=== PATIENT | male | born 1980 | race Caucasian/White ===

== ENCOUNTER 2017-03-09 14:06 | Emergency (ER) | payer MEDICAID ==
[~2017-03-09] VITALS: Ht 170.2 cm; Wt 112.0 kg
[~2017-03-09 14:06] MED LIST: IOHEXOL-300 100 ML BOTTLE ONE; SODIUM CHLORIDE 0.9% 10ML VIAL ONE
[2017-03-09] MEDS ORDERED: SODIUM CHLORIDE 0.9% 1,000 ML IV ONE (14:54)
[2017-03-09] MEDS ORDERED: ONDANSETRON HCL 4MG/2ML VIAL IV STA (14:54)
[2017-03-09] MEDS ORDERED: MORPHINE SULFATE 4 MG/ML CPJ (NOT FOR IM USE) IV STA (14:54)
[2017-03-09] MEDS ORDERED: TETANUS, DIPHTHERIA, PERTUSSIS VAC/PF 0.5ML (>7YR OLD) IM ONE (15:00)
[2017-03-09 15:12] LABS: CLARITY URINE CLEAR (CLEAR); COLOR URINE YELLOW (YELLOW); GLUCOSE URINE NEGATIVE (NEGATIVE); KETONES URINE NEGATIVE (NEGATIVE); LEUKOCYTE ESTERASE URINE NEGATIVE (NEGATIVE); NITRITE URINE NEGATIVE (NEGATIVE); OCCULT BLOOD URINE NEGATIVE (NEGATIVE); PH URINE 5.5 (4.5-8.0); PROTEIN URINE NEGATIVE (NEGATIVE); SPECIFIC GRAVITY URINE 1.026 (1.005-1.030); UROBILINOGEN URINE 0.2 E.U./dL (0.2-1.0)
[2017-03-09 15:21] LABS: BASOPHILS % 1.2 % (0.0-2.0); EOSINOPHILS % 4.6 % (0.0-5.0); HEMATOCRIT. 43.7 % (42.0-52.0); HEMOGLOBIN. 14.7 g/dL (14.0-18.0); LYMPHOCYTES % 17.8 % (20.0-50.0); MEAN CORPUSCULAR HEMOGLOBIN 29.8 pg (28.0-32.0); MEAN CORPUSCULAR VOLUME 88.5 fL (80.0-94.0); MONOCYTES % 8.6 % (2.0-8.0); NEUTROPHILS % 67.8 % (40.0-76.0); PLATELET 227 x1000/uL (130-400); RED BLOOD CELL COUNT 4.93 mill/uL (4.7-6.1); RED CELL DISTRIBUTION WIDTH 14.2 % (11.6-14.6)
[2017-03-09 15:26] LABS: CHLORIDE 106 mEq/L (98-107)
[2017-03-09 15:27] LABS: PROTHROMBIN TIME 10.5 sec
[2017-03-09 15:35] LABS: CARBON DIOXIDE 26 mEq/L (21-32)
[2017-03-09 20:09] VITALS: BP 155/90
== END 2017-03-09 20:09 | disposition home or self-care (01) ==
LOC: ER 15:01
DX: S52.592A Other fractures of lower end of left radius, initial encounter for closed fracture (principal); S52.692A Other fracture of lower end of left ulna, initial encounter for closed fracture; F17.200 Nicotine dependence, unspecified, uncomplicated; F12.10 Cannabis abuse, uncomplicated; V43.52XA Car driver injured in collision with other type car in traffic accident, initial encounter; Y93.89 Activity, other specified; Y99.8 Other external cause status; Y92.9 Unspecified place or not applicable
CPT/HCPCS: 25605; 36415; 70450; 71260; 72125; 73030; 74177; 80053; 81003; 85025; 85610; 96360; 96361; 99285; A4216; J2405; J7030; Q9967; 90715; J2270

== ENCOUNTER 2025-07-07 23:55 | Inpatient (IN) | payer MEDICAID ==
[~2025-07-07] VITALS: Ht 170.2 cm; Wt 98.9 kg
[2025-07-07 23:56] VITALS: O2SAT 98
[2025-07-08 00:46] LABS: HEMATOCRIT. 45.5 % (42.0-52.0); HEMOGLOBIN. 15.0 g/dL (14.0-18.0); MEAN PLATELET VOLUME 10.4 fl (7.4-10.4); PLATELET 273 x1000/uL (130-400); RED BLOOD CELL COUNT 5.19 mill/uL (4.7-6.1); RED CELL DISTRIBUTION WIDTH 14.8 % (11.6-14.6)
[2025-07-08 01:01] LABS: CREATININE 1.5 mg/dL (0.6-1.3)
[2025-07-08 01:02] LABS: TROPONIN I HIGH SENSITIVITY 35 ng/L (3.0-53); UREA NITROGEN BLOOD 26 mg/dL (9-23)
[2025-07-08 01:03] LABS: ASPARTATE AMINOTRANSFERASE 14 IU/L (<34)
[2025-07-08 01:04] LABS: BILIRUBIN DIRECT 0.2 mg/dL (<=3.0); BILIRUBIN TOTAL 0.7 mg/dL (0.1-1.0); EOSINOPHILS % MANUAL 3.0 % (0.0-5.0); LYMPHOCYTES % MANUAL 19.0 % (20.0-50.0); MONOCYTES % MANUAL 11.0 % (2.0-8.0); NEUTROPHILS % MANUAL 67.0 % (45.0-75.0); PROTEIN TOTAL 6.7 g/dL (6.0-8.3)
[2025-07-08 01:05] LABS: PLATELET ESTIMATE NORMAL
[2025-07-08] MEDS: FUROSEMIDE 40MG/4ML VIAL IV NR (02:46)
[2025-07-08] MEDS: FUROSEMIDE 40MG/4ML VIAL IV ONE (02:48)
[2025-07-08 04:03] LABS: TROPONIN I HIGH SENSITIVITY 35 ng/L (3.0-53)
[2025-07-08] MEDS ORDERED: ONDANSETRON HCL 4MG/2ML INJ IV PRN (05:00)
[2025-07-08] MEDS ORDERED: IPRATROPIUM/ALBUTEROL 0.5-3(2.5)MG/3ML NEB HHN PRN (05:00)
[2025-07-08] MEDS ORDERED: GUAIFENESIN 200MG/10ML SUGAR FREE UDC PO PRN (05:00)
[2025-07-08] MEDS ORDERED: ACETAMINOPHEN 325MG TABLET PO PRN ×2 (05:00)
[2025-07-08] MEDS ORDERED: DEXTROSE 50% WATER 50ML SYRINGE IV PRN (05:15)
[2025-07-08 05:41] LABS: BASOPHILS % 0.2 % (0.0-2.0); EOSINOPHILS % 5.1 % (0.0-5.0); HEMATOCRIT. 46.0 % (42.0-52.0); HEMOGLOBIN. 15.2 g/dL (14.0-18.0); LYMPHOCYTES % 22.3 % (20.0-50.0); MEAN PLATELET VOLUME 10.4 fl (7.4-10.4); MONOCYTES % 6.4 % (2.0-8.0); NEUTROPHILS % 66.0 % (40.0-76.0); PLATELET 282 x1000/uL (130-400); RED BLOOD CELL COUNT 5.22 mill/uL (4.7-6.1); RED CELL DISTRIBUTION WIDTH 15.3 % (11.6-14.6)
[2025-07-08 05:51] LABS: INR 1.1
[2025-07-08 06:01] LABS: CREATINE KINASE MB FRACTION < 0.5 ng/mL (0.5-3.6); CREATININE 1.6 mg/dL (0.6-1.3); TRIGLYCERIDE 185 mg/dL (0-150); TROPONIN I HIGH SENSITIVITY 36 ng/L (3.0-53); UREA NITROGEN BLOOD 26 mg/dL (9-23)
[2025-07-08 06:02] LABS: LDL CHOLESTEROL 167 mg/dL (5-100)
[2025-07-08 06:03] LABS: PHOSPHORUS 3.9 mg/dL (2.5-4.9)
[2025-07-08 06:06] LABS: T4 FREE 1.67 ng/dL (0.89-1.76)
[2025-07-08 06:39] LABS: *AMPHETAMINES SCREEN URINE NEGATIVE (NEGATIVE); *BARBITURATES SCREEN URINE NEGATIVE (NEGATIVE); *BENZODIAZEPINES SCREEN URINE NEGATIVE (NEGATIVE); *COCAINE SCREEN URINE NEGATIVE (NEGATIVE); CANNABINOID URINE SCREEN NEGATIVE (NEGATIVE); ECSTASY MDMA SCREEN URINE NEGATIVE (NEGATIVE); METHADONE URINE SCREEN NEGATIVE (NEGATIVE); OPIATES URINE SCREEN NEGATIVE (NEGATIVE); PHENCYCLIDINE URINE SCREEN NEGATIVE (NEGATIVE)
[2025-07-08] MEDS: BLOOD SUGAR DIAGNOSTIC STRIP TEST SCH (07:10)
[2025-07-08 07:30] VITALS: BP 111/82; PULSE 98; RESP 18; TEMP 36.8; O2SAT 97
[2025-07-08 08:00] VITALS: BP 110/75; PULSE 91; RESP 18; TEMP 36.4; O2SAT 100
[2025-07-08] MEDS: MAGNESIUM 2 G PREMIX 50 ML IV NR (09:32)
[2025-07-08] MEDS: FUROSEMIDE 40MG/4ML VIAL IVP SCH (09:33)
[2025-07-08] MEDS: ENOXAPARIN 30MG/0.3ML SYR SUBCUT SCH (09:33)
[2025-07-08] MEDS: INSULIN LISPRO 100 UNITS/ML SUBCUT SCH (09:34)
[2025-07-08 09:57] VITALS: BP 110/75; PULSE 91; RESP 18; TEMP 36.5292
[2025-07-08 12:00] VITALS: BP 117/80; PULSE 91; RESP 18; TEMP 36.4; O2SAT 98
[2025-07-08] MEDS ORDERED: EMPA25TA MT (12:13)
[2025-07-08] MEDS ORDERED: SACU1TAB PO (12:13)
[2025-07-08] MEDS ORDERED: FURO-151 MT (12:13)
[2025-07-08 15:45] LABS: CLARITY URINE CLEAR (CLEAR); COLOR URINE STRAW (YELLOW)
[2025-07-08 15:50] LABS: *AMPHETAMINES SCREEN URINE NEGATIVE (NEGATIVE); *BENZODIAZEPINES SCREEN URINE NEGATIVE (NEGATIVE)
[2025-07-08 15:51] LABS: *BARBITURATES SCREEN URINE NEGATIVE (NEGATIVE); *COCAINE SCREEN URINE NEGATIVE (NEGATIVE); CANNABINOID URINE SCREEN NEGATIVE (NEGATIVE); ECSTASY MDMA SCREEN URINE NEGATIVE (NEGATIVE); METHADONE URINE SCREEN NEGATIVE (NEGATIVE); OPIATES URINE SCREEN NEGATIVE (NEGATIVE); PHENCYCLIDINE URINE SCREEN NEGATIVE (NEGATIVE)
[2025-07-08 15:58] LABS: GLUCOSE URINE NEGATIVE (NEGATIVE); KETONES URINE NEGATIVE (NEGATIVE); LEUKOCYTE ESTERASE URINE NEGATIVE (NEGATIVE); NITRITE URINE NEGATIVE (NEGATIVE); OCCULT BLOOD URINE NEGATIVE (NEGATIVE); PH URINE 6.0 (4.5-8.0); PROTEIN URINE NEGATIVE (NEGATIVE); SPECIFIC GRAVITY URINE 1.010 (1.005-1.030); UROBILINOGEN URINE 0.2 E.U./dL (0.2-1.0)
[2025-07-08 16:00] VITALS: BP 120/91; PULSE 104; RESP 18; TEMP 36.3; O2SAT 98
[2025-07-08 16:59] LABS: TROPONIN I HIGH SENSITIVITY 34 ng/L (3.0-53)
[2025-07-08 17:00] LABS: CREATINE KINASE MB FRACTION 0.8 ng/mL (0.5-3.6)
[2025-07-08 20:00] VITALS: BP 112/80; PULSE 70; RESP 16; TEMP 36.3; O2SAT 98
[2025-07-08] MEDS: ATORVASTATIN CALCIUM 40MG TABLET PO SCH (20:45)
[2025-07-08] MEDS: FAMOTIDINE 20MG TABLET PO SCH (20:45)
[2025-07-09] VITALS: BP 112/83; PULSE 92; RESP 18; TEMP 36.5; O2SAT 95
[2025-07-09 04:00] VITALS: BP 102/70; PULSE 90; RESP 16; TEMP 36.4; O2SAT 96
[2025-07-09 08:00] VITALS: BP 90/65; PULSE 111; RESP 18; TEMP 36.6; O2SAT 100
[2025-07-09] MEDS: SPIRONOLACTONE 25MG TABLET PO SCH (08:33)
[2025-07-09 10:40] LABS: BASOPHILS % 2.1 % (0.0-2.0); EOSINOPHILS % 4.4 % (0.0-5.0); HEMATOCRIT. 50.3 % (42.0-52.0); HEMOGLOBIN. 16.4 g/dL (14.0-18.0); LYMPHOCYTES % 20.5 % (20.0-50.0); MEAN PLATELET VOLUME 11.1 fl (7.4-10.4); MONOCYTES % 7.8 % (2.0-8.0); NEUTROPHILS % 65.2 % (40.0-76.0); PLATELET 265 x1000/uL (130-400); RED BLOOD CELL COUNT 5.71 mill/uL (4.7-6.1); RED CELL DISTRIBUTION WIDTH 14.7 % (11.6-14.6)
[2025-07-09 11:04] LABS: CREATININE 1.7 mg/dL (0.6-1.3)
[2025-07-09 11:06] LABS: UREA NITROGEN BLOOD 32 mg/dL (9-23)
[2025-07-09 11:08] LABS: PHOSPHORUS 4.9 mg/dL (2.5-4.9)
[2025-07-09 12:00] VITALS: BP 123/82; PULSE 89; RESP 18; TEMP 36.4; O2SAT 98
[2025-07-09] MEDS: POTASSIUM CHLORIDE 20MEQ TABLET SR PO NR (15:53)
[2025-07-09 16:00] VITALS: BP 116/91; PULSE 102; RESP 17; TEMP 36.3; O2SAT 98
[2025-07-09 17:40] VITALS: BP 116/91; PULSE 102; RESP 17; TEMP 97.4
== END 2025-07-09 18:00 | disposition home or self-care (01) | DRG 194 ==
LOC: ER 23:55 → 8WST 07-08 04:37 → EDBEDREQTM 07-08 04:55 → EDBEDREQ 07-08 04:55 → ENRESERV 07-08 05:29
PROVIDERS: ADMIT Internal Medicine; ATTEND Internal Medicine
DX: I13.0 Hypertensive heart and chronic kidney disease with heart failure and stage 1 through stage 4 chronic kidney disease, or unspecified chronic kidney disease (principal); N17.9 Acute kidney failure, unspecified; E11.22 Type 2 diabetes mellitus with diabetic chronic kidney disease; I50.23 Acute on chronic systolic (congestive) heart failure; E78.5 Hyperlipidemia, unspecified; E83.42 Hypomagnesemia; F15.90 Other stimulant use, unspecified, uncomplicated; E11.65 Type 2 diabetes mellitus with hyperglycemia; F17.210 Nicotine dependence, cigarettes, uncomplicated; N18.9 Chronic kidney disease, unspecified; F12.20 Cannabis dependence, uncomplicated; Z79.899 Other long term (current) drug therapy; I25.2 Old myocardial infarction; Z79.4 Long term (current) use of insulin; Z95.810 Presence of automatic (implantable) cardiac defibrillator
CPT/HCPCS: 36415; 71045; 76770; 80048; 80061; 80076; 80305; 80320; 81003; 82550; 82553; 82962; 83036; 83735; 83880; 84100; 84145; 84439; 84443; 84484; 85025; 85379; 93005; 93306; 93970; 96374; 99285; J1650; J1815; J1938; J3475; G0480